=== PATIENT | male | born 1970 | race Caucasian/White ===

== ENCOUNTER 2022-04-28 23:42 | Emergency (ER) | payer OTHER ==
[~2022-04-28] VITALS: Ht 180.3 cm; Wt 109.1 kg
[2022-04-28 23:43] VITALS: BP 135/80
[2022-04-29] MEDS ORDERED: AUGMENTIN 875 MG TAB PO ONE (01:15)
[2022-04-29] MEDS ORDERED: ACETAMINOPHEN 500 MG TAB PO ONE (01:15)
[2022-04-29] MEDS ORDERED: BOOSTRIX/ADACEL VACCINE (DIPHTH/PERTUSS/ACELL/TETANUS) 0.5ML SYR IM ONE (01:15)
[2022-04-29] MEDS ORDERED: LIDOCAINE 2% MDV 20ML VIAL SC ONE (01:20)
[2022-04-29] MEDS ORDERED: AMOX875T2 PO (01:27)
== END 2022-04-29 02:20 | disposition home or self-care (01) ==
LOC: M ED 23:42
DX: S71.131A Puncture wound without foreign body, right thigh, initial encounter (principal); S61.032A Puncture wound without foreign body of left thumb without damage to nail, initial encounter; S61.531A Puncture wound without foreign body of right wrist, initial encounter; W54.0XXA Bitten by dog, initial encounter; Y92.009 Unspecified place in unspecified non-institutional (private) residence as the place of occurrence of the external cause; Y93.9 Activity, unspecified; Y99.9 Unspecified external cause status

== ENCOUNTER 2023-02-07 14:12 | Observation (INO) | payer OTHER ==
[~2023-02-07] VITALS: Ht 182.9 cm; Wt 101.9 kg
[~2023-02-07 14:12] MED LIST: AMOX875T2 PO
[2023-02-07 15:16] LABS: BASO % 0.2 % (0.0-1.0); HEMATOCRIT 47.9 % (42.0-52.0); LYMPH # 0.8 10^3/uL (1.5-5.0); LYMPH % 5.3 % (24.0-44.0); MEAN CORPUSCULAR HEMOGLOBIN 30.1 pg (27.0-33.0); MEAN CORPUSCULAR HGB CONC 33.4 g/dl (32.0-36.5); MEAN CORPUSCULAR VOLUME 90.2 fl (80.0-96.0); MONO # 0.7 10^3/uL (0.0-0.8); MONO % 5.1 % (2.0-8.0); NEUTROPHILS # 12.6 10^3/uL (1.5-8.5); PLATELET COUNT, AUTOMATED 156 10^3/uL (150-450); RED BLOOD COUNT 5.31 10^6/uL (4.30-6.10); WHITE BLOOD COUNT 14.2 10^3/uL (4.0-10.0)
[2023-02-07 15:29] LABS: INR 1.17; PARTIAL THROMBOPLASTIN TIME 28.6 SECONDS (24.8-34.2); PROTHROMBIN TIME 15.1 SECONDS (12.5-14.5)
[2023-02-07 15:38] LABS: CK-MB VALUE MASS < 1.0 NG/ML (<3.6); ETHYL ALCOHOL (ETHANOL) < 0.003 % (0.000-0.010)
[2023-02-07 15:40] LABS: BLOOD UREA NITROGEN 15 MG/DL (9-23); CALCIUM LEVEL 8.7 MG/DL (8.5-10.1); CARBON DIOXIDE LEVEL 24 MMOL/L (20-31); CHLORIDE LEVEL 102 MMOL/L (98-107); CPK CREATINE PHOSPHOKINASE 113 U/L (46-171); CREATININE FOR GFR 0.93 MG/DL (0.70-1.30); GLOMERULAR FILTRATION RATE > 60.0 (>56); GLUCOSE, FASTING 110 MG/DL (60-100); MAGNESIUM LEVEL 1.8 MG/DL (1.8-2.4); MB/CK RELATIVE INDEX 0.88 (< OR =4); SODIUM LEVEL 137 MMOL/L (136-145)
[2023-02-07] MEDS ORDERED: NS 3,070 ML in IV 1 EA IV ONE (15:40)
[2023-02-07] MEDS ORDERED: ACETAMINOPHEN 1000MG 100ML IV BAG IV ONE (15:40)
[2023-02-07 15:42] LABS: FREE T4 0.84 NG/DL (0.89-1.76)
[2023-02-07 15:43] LABS: THYROID STIMULATING HORMONE 0.491 uIU/ML (0.55-4.78)
[2023-02-07 16:29] LABS: CK-MB VALUE MASS < 1.0 NG/ML (<3.6)
[2023-02-07 16:39] LABS: CPK CREATINE PHOSPHOKINASE 105 U/L (46-171); MB/CK RELATIVE INDEX 0.95 (< OR =4)
[2023-02-07] MEDS ORDERED: MED REC IN PROGRESS XX SCH (19:40)
[2023-02-07] MEDS ORDERED: FEXO-116 PO (19:41)
[2023-02-07] MEDS ORDERED: BUPR150T12 PO (19:41)
[2023-02-07] MEDS ORDERED: OMEP-173 PO (19:41)
[2023-02-07] MEDS ORDERED: HOME MED LIST COMPLETE! XX SCH (19:45)
[2023-02-07] MEDS ORDERED: AZITHROMYCIN 250MG TABLET PO ONE (21:40)
[2023-02-07] MEDS: LR 1,000 ML IV SCH (22:56)
[2023-02-07] MEDS ORDERED: ACETAMINOPHEN TAB 650MG DOSE (2X325MG) PO PRN (23:30)
[2023-02-08] MEDS ORDERED: hydrALAZINE 20MG/ML 1ML VIAL IV ONE (00:40)
[2023-02-08 02:25] VITALS: BP 118/74; TEMP 98.9; O2SAT 97
[2023-02-08 06:00] VITALS: BP 115/73; TEMP 98.1; O2SAT 98
[2023-02-08 06:42] LABS: BLOOD UREA NITROGEN 15 MG/DL (9-23); CALCIUM LEVEL 8.3 MG/DL (8.5-10.1); CARBON DIOXIDE LEVEL 26 MMOL/L (20-31); CHLORIDE LEVEL 105 MMOL/L (98-107); GLOMERULAR FILTRATION RATE > 60.0 (>56); GLUCOSE, FASTING 93 MG/DL (60-100); POTASSIUM SERUM 3.9 MMOL/L (3.5-5.1); SODIUM LEVEL 138 MMOL/L (136-145)
[2023-02-08] MEDS: LR 1,000 ML IV SCH ×3 (07:32→23:29)
[2023-02-08 08:30] LABS: BASO % 0.4 % (0.0-1.0); EOS # 0.1 10^3/uL (0.0-0.5); EOS % 0.7 % (0.0-3.0); HEMATOCRIT 42.5 % (42.0-52.0); HEMOGLOBIN 14.2 g/dl (13.5-17.5); LYMPH % 11.3 % (24.0-44.0); MEAN CORPUSCULAR HEMOGLOBIN 30.3 pg (27.0-33.0); MEAN CORPUSCULAR HGB CONC 33.4 g/dl (32.0-36.5); MEAN CORPUSCULAR VOLUME 90.6 fl (80.0-96.0); MONO # 0.8 10^3/uL (0.0-0.8); MONO % 8.5 % (2.0-8.0); NEUTROPHILS # 7.1 10^3/uL (1.5-8.5); NEUTROPHILS % 78.8 % (36.0-66.0); PLATELET COUNT, AUTOMATED 131 10^3/uL (150-450); RED BLOOD COUNT 4.69 10^6/uL (4.30-6.10)
[2023-02-08 10:02] LABS: MAGNESIUM LEVEL 1.8 MG/DL (1.8-2.4)
[2023-02-08] MEDS: buPROPion **XL** TABLET 150MG (WELLBUTRIN XL) PO SCH (12:08)
[2023-02-08] MEDS: OMEPRAZOLE 20MG CAP PO SCH (12:08)
[2023-02-08] MEDS: ENOXAPARIN 40MG/0.4ML SYRINGE (J1650 PER 10MG) SC SCH (12:09)
[2023-02-08] MEDS: FEXOFENADINE 60MG TAB PO SCH (13:51)
[2023-02-08 14:00] VITALS: BP 115/73; TEMP 97.7; O2SAT 98
[2023-02-08 19:35] VITALS: BP 132/85; TEMP 97.9; O2SAT 98
[2023-02-08] MEDS ORDERED: AZITHROMYCIN 250MG TABLET PO SCH (21:00)
[2023-02-08] MEDS ORDERED: RAMELTEON 8 MG TAB (ROZEREM) PO PRN (22:30)
[2023-02-09 05:28] VITALS: BP 110/60; TEMP 98.6; O2SAT 96
[2023-02-09 06:17] LABS: BASO % 0.4 % (0.0-1.0); EOS # 0.2 10^3/uL (0.0-0.5); EOS % 2.1 % (0.0-3.0); HEMOGLOBIN 13.4 g/dl (13.5-17.5); LYMPH # 1.3 10^3/uL (1.5-5.0); LYMPH % 16.8 % (24.0-44.0); MEAN CORPUSCULAR HEMOGLOBIN 29.3 pg (27.0-33.0); MEAN CORPUSCULAR HGB CONC 32.7 g/dl (32.0-36.5); MEAN CORPUSCULAR VOLUME 89.5 fl (80.0-96.0); MONO % 12.5 % (2.0-8.0); NEUTROPHILS # 5.3 10^3/uL (1.5-8.5); NEUTROPHILS % 67.9 % (36.0-66.0); PLATELET COUNT, AUTOMATED 146 10^3/uL (150-450); RED BLOOD COUNT 4.58 10^6/uL (4.30-6.10); WHITE BLOOD COUNT 7.7 10^3/uL (4.0-10.0)
[2023-02-09 06:46] LABS: ALBUMIN 2.9 G/DL (3.2-5.2); ALKALINE PHOSPHATASE 66 U/L (46-116); ALT/SGPT 25 U/L (7.0-40); AST/SGOT 11 U/L (<34); BILIRUBIN,TOTAL 0.4 MG/DL (0.3-1.2); BLOOD UREA NITROGEN 9 MG/DL (9-23); CALCIUM LEVEL 8.3 MG/DL (8.5-10.1); CARBON DIOXIDE LEVEL 25 MMOL/L (20-31); CHLORIDE LEVEL 109 MMOL/L (98-107); GLOMERULAR FILTRATION RATE > 60.0 (>56); GLUCOSE, FASTING 101 MG/DL (60-100); MAGNESIUM LEVEL 1.7 MG/DL (1.8-2.4); POTASSIUM SERUM 4.1 MMOL/L (3.5-5.1); SODIUM LEVEL 143 MMOL/L (136-145); TOTAL PROTEIN 5.1 G/DL (5.7-8.2)
[2023-02-09] MEDS ORDERED: MAG SULF 1GM/100ML (MAG RUN) 1 GM in IV 1 EA IV ONE (07:20)
[2023-02-09] MEDS: LR 1,000 ML IV SCH (08:08)
[2023-02-09] MEDS: MAG SULF 1GM/100ML (MAG RUN) 1 GM in IV 1 EA IV SCH ×2 (08:09→10:00)
[2023-02-09] MEDS: buPROPion **XL** TABLET 150MG (WELLBUTRIN XL) PO SCH (08:12)
[2023-02-09] MEDS: OMEPRAZOLE 20MG CAP PO SCH (08:12)
[2023-02-09] MEDS: FEXOFENADINE 60MG TAB PO SCH (08:12)
[2023-02-09] MEDS: ENOXAPARIN 40MG/0.4ML SYRINGE (J1650 PER 10MG) SC SCH (08:12)
[2023-02-09] MEDS ORDERED: AZIT-12 PO (12:09)
[2023-02-09] MEDS ORDERED: AZIT500T5 PO (13:38)
[2023-02-09] MEDS ORDERED: PROB250C PO (13:39)
[2023-02-09 14:00] VITALS: BP 103/63; TEMP 97.9; O2SAT 99
== END 2023-02-09 15:00 | disposition home or self-care (01) ==
LOC: EDBD 14:12 → M ED 14:12 → M ED INP 21:20 → ENRESERV 02-08 01:48 → M MSPAV 02-08 02:20
PROVIDERS: ADMIT Internal Medicine; ATTEND Internal Medicine
DX: A04.5 Campylobacter enteritis (principal); R55 Syncope and collapse; K21.9 Gastro-esophageal reflux disease without esophagitis; F41.9 Anxiety disorder, unspecified; J30.2 Other seasonal allergic rhinitis; R91.1 Solitary pulmonary nodule; Z79.899 Other long term (current) drug therapy
CPT/HCPCS: 36415; 70450; 71045; 80048; 80053; 81001; 82077; 82550; 82553; 83605; 83735; 84145; 84439; 84443; 84484; 85025; 85610; 85730; 87040; 87486; 87507; 87581; 87633; 87798; 93005; 93041; 94760; 96361; 96372; 96374; 96375; 99285; J0131; J1650; J3475

== ENCOUNTER → 2023-04-13 | Outpatient (CLI) | payer OTHER ==
[~2023-04-13] MED LIST changes: +AZIT-12 PO; +AZIT500T5 PO; +BUPR150T12 PO; +FEXO-116 PO; +ISOVUE-370 76% 100ML VIAL As Ordered ONE; +OMEP-173 PO; +PROB250C PO
== END ==
LOC: M RAD 15:59
PROVIDERS: ATTEND Student in an Organized Health Care Education/Training Program
DX: R91.1 Solitary pulmonary nodule (principal)
CPT/HCPCS: 71260; Q9967